=== PATIENT | male | born 1945 | race Caucasian/White ===

== ENCOUNTER 2017-06-25 08:05 | Day surgery (SDC) | payer MEDICARE, BC ==
[~2017-06-25 08:05] MED LIST: Acetaminophen 500 MG Tab PO ONE; Dextrose 5%-Lactated Ringers 1,000 ML IV SCH; Midazolam 1 MG/ML 2 ML SDV ONE; Propofol 200 MG/20 ML SDV ONE; fentaNYL 100 MCG/2 ML SDV ONE
[2017-06-25] MEDS ORDERED: ceFAZolin 2 GM in Premix Bag 1 BAG IV ONE (08:30)
[2017-06-25] MEDS ORDERED: Metoprolol Succinate 50 MG Tab.ER PO ONE (09:00)
[2017-06-25] MEDS ORDERED: Bacitracin Oint 1 GM U/D Packet ONE (09:27)
[2017-06-25] MEDS ORDERED: Lidocaine 1% with EPINEPHrine 1:100,000 50 ML MDV ONE (09:27)
[2017-06-25] MEDS ORDERED: Lidocaine 1% 50 ML MDV ONE (09:27)
[2017-06-25] MEDS ORDERED: Bupivacaine 0.5% 50 ML MDV ONE (09:27)
[2017-06-25 12:00] VITALS: BP 123/66
--- NOTE | 2017-07-02 10:24 | OR ---
DATE OF PROCEDURE: 06/25/2017 PREOPERATIVE DIAGNOSES: 1. Large epidermoid cyst, right upper neck. 2. Large skin tag, left thigh. POSTOPERATIVE DIAGNOSES: 1. Large epidermoid cyst, right upper neck. 2. Large skin tag, left thigh. OPERATIVE PROCEDURES: 1. Excision of epidermoid cyst, right upper neck, with layered closure (58751, [id number]). 2. Excision of skin tag, left thigh (13013). ANESTHESIA: Local plus IV sedation. INDICATION FOR PROCEDURE: The patient presents with an enlarging epidermoid cyst in the neck. This was located just below the angle of the jaw in an area where there might be considerable risk for nerve injury with excision. Given this, the plan is to proceed with an excision of this in the hospital with IV sedation. He also has a large skin tag starting on the left thigh, which will also be excised. Potential risks including bleeding, infection, possible recurrence of the lesions, injury to nerves in the area were reviewed, and the patient wishes to proceed. DETAILS OF PROCEDURE: The patient was taken to the operating room and placed in a supine position with the head turned somewhat toward the left. Initially, the right neck and surrounding areas were prepped and draped, and anesthetized with 1% lidocaine mixed with Marcaine. A linear incision in the skin lines was made, maintaining a level of the incision below the expected course of the marginal mandibular nerve. This was carried down through the skin and subcutaneous tissue, through an ellipse that included the overlying skin port. The cyst was then dissected free and removed in an intact manner with care taken to maintain a plane of dissection medially on the surface of the cyst. Upon removal of the cyst, it was measured at 2.5 cm. A layered closure with 4-0 Vicryl stitch deep and 5-0 Prolene skin stitch was then accomplished with that incision being 3.5 cm. Bacitracin was applied to the incision. Attention was then taken to the skin tag. This was a fairly large skin tag on the posterior aspect of the left thigh. The base was anesthetized with 1% lidocaine mixed with Marcaine. This was excised flush with the skin. No closure was felt to be necessary. Band-Aid was applied. The patient was taken to the recovery room in a satisfactory condition. Aaron Sanchez MD /[id number]
== END 2017-06-25 12:25 | disposition home or self-care (01) ==
LOC: JP.SDS 08:05
PROVIDERS: ATTEND Surgery
DX: L72.0 Epidermal cyst (principal); L91.8 Other hypertrophic disorders of the skin; G47.33 Obstructive sleep apnea (adult) (pediatric); E11.9 Type 2 diabetes mellitus without complications; E66.9 Obesity, unspecified; Z99.89 Dependence on other enabling machines and devices; Z88.8 Allergy status to other drugs, medicaments and biological substances
CPT/HCPCS: 11200; 11423; 12042; 88304; A9270; J0690; J2250; J2704; J3010; J7042

== ENCOUNTER 2017-06-28 07:08 | Day surgery (SDC) | payer MEDICARE, BC ==
[2017-06-28] MEDS ORDERED: Sodium Chloride 0.9% 1,000 ML IV SCH (07:30)
[2017-06-28] MEDS ORDERED: Propofol 200 MG/20 ML SDV ONE (07:33)
[2017-06-28] MEDS ORDERED: fentaNYL 100 MCG/2 ML SDV ONE (07:33)
[2017-06-28] MEDS ORDERED: Midazolam 1 MG/ML 2 ML SDV ONE (07:33)
[2017-06-28 09:29] VITALS: BP 112/69
--- NOTE | 2017-06-28 11:23 | CR ---
Single contrast barium enema History: Prior surgical anastomosis involving the sigmoid colon. Incomplete colonoscopy with strictur e at the anastomosis. Barium was administered retrograde into the colon via gravity. The rectum demonstrates normal distensibility. There is a focal area of narrowing at the surgical dhaval stomosis at the junction of the sigmoid colon and descending colon. There is persistent narrowing wit h poor distensibility. The colon proximal to the anastomosis demonstrates normal distensibility. Ther e are no additional areas of stricture. There are numerous scattered colonic diverticula. Impression: 1. Focal stricture at surgical anastomosis. 2. Diffuse colonic diverticula.
--- NOTE | 2017-06-28 15:44 | OR ---
DATE OF PROCEDURE: 06/28/2017 PROCEDURE: Colonoscopy. FINDINGS: 1. Stricturing of previous sigmoid colon anastomosis (unable to be traversed with the scope due to perforation risk). 2. Diverticulosis, mild. 3. Biopsy of colonic anastomotic site. COMPLICATIONS: None. FURNACE ATTENDANT: None. ANESTHESIA: MAC. RISKS: Risks, benefits, alternatives, and limitations including, but not limited to infection, bleeding, and perforation were explained to the patient, they wished to proceed. PROCEDURE IN DETAIL: The patient was placed in left lateral decubitus position. Digital rectal exam was performed without abnormality. The scope was introduced and advanced. At the sigmoid colon anastomosis, the anastomosis itself was narrower than the scope. No blind or advanced pressure were advanced, however, attempts were made to traverse this, and this was unable to be achieved. Therefore, biopsies using cold biopsy forceps were performed of the anastomotic site and no other abnormalities were noted. On retroflex, there were no abnormalities. The patient tolerated the procedure well. The patient will be sent for barium enema. Ozzie Paulson MD /[id number]
== END 2017-06-28 11:30 | disposition home or self-care (01) ==
LOC: JP.SDS 07:08
PROVIDERS: ATTEND Surgery
DX: Z12.11 Encounter for screening for malignant neoplasm of colon (principal); K57.30 Diverticulosis of large intestine without perforation or abscess without bleeding; K91.89 Other postprocedural complications and disorders of digestive system; G47.33 Obstructive sleep apnea (adult) (pediatric); Z88.8 Allergy status to other drugs, medicaments and biological substances
CPT/HCPCS: 45380; 74270; J2250; J2704; J3010; J7040; 88305

== ENCOUNTER 2018-10-10 08:36 | Day surgery (SDC) | payer MEDICARE, BC ==
[~2018-10-10 08:36] MED LIST changes: -Acetaminophen 500 MG Tab PO ONE; +Bacitracin Oint 1 GM U/D Packet ONE; -Dextrose 5%-Lactated Ringers 1,000 ML IV SCH; +Lidocaine 1% with EPINEPHrine 1:100,000 50 ML MDV ONE; -Midazolam 1 MG/ML 2 ML SDV ONE; -Propofol 200 MG/20 ML SDV ONE; -fentaNYL 100 MCG/2 ML SDV ONE
[2018-10-10] MEDS ORDERED: Dextrose 5%-Lactated Ringers 1,000 ML IV SCH (09:00)
[2018-10-10] MEDS ORDERED: ceFAZolin 2 GM in Premix Bag 1 BAG IV ONE (09:30)
[2018-10-10] MEDS ORDERED: Midazolam 1 MG/ML 2 ML SDV ONE (09:34)
[2018-10-10] MEDS ORDERED: fentaNYL 100 MCG/2 ML SDV ONE (09:34)
[2018-10-10] MEDS ORDERED: Propofol 200 MG/20 ML SDV ONE (09:34)
[2018-10-10 13:59] VITALS: BP 157/76
--- NOTE | 2018-10-13 14:13 | OR ---
DATE OF PROCEDURE: 10/10/2018 PREOPERATIVE DIAGNOSIS: Rule out temporal arteritis. POSTOPERATIVE DIAGNOSIS: Rule out temporal arteritis. OPERATIVE PROCEDURE: Bilateral temporal artery biopsies (49859 x2). ANESTHESIA: Local plus IV sedation. INDICATIONS FOR PROCEDURE: The patient is a 73-year-old, presenting here with symptoms suggestive of possible temporal arteritis. Given this, he is going to undergo bilateral temporal artery biopsy. Potential risks of the procedure including bleeding and infection were reviewed, and the patient wishes to proceed. DETAILS OF PROCEDURE: The patient was taken to the operating room, placed in a supine position. After IV sedation was administered, the temporal arteries were mapped out on each side with Dopplers and the line of temporal artery marked out. Both areas were then prepped and draped, anesthetized with 1% lidocaine mixed with Marcaine. Attention was taken to the left side initially. A linear incision was made over the temporal artery and continued down through the skin and subcutaneous tissue. The artery was then identified and roughly 3 cm to 3.5 cm of the artery was dissected free. Proximally and distally, the artery was then clamped and divided, and the arterial tissue between the 2 clamp points was then excised and sent for histologic evaluation. The 2 ends were then suture ligated with 4-0 Vicryl stitch, which was also used to close the deeper soft tissues in 2 layers and the skin then closed with 5-0 Vicryl subcuticular stitch. Attention was then taken to the right side. In an identical incision and dissection, excision was accomplished. The artery on this side was a little bit thicker, but neither side was particularly suggestive of a temporal arteritis grossly. Upon completion of the procedure, both incisions were coated with some surgical glue. The patient was taken to the recovery room in satisfactory condition. There were no evident complications. Aaron Sanchez MD /[id number]
== END 2018-10-10 13:50 | disposition home or self-care (01) ==
LOC: JP.SDS 08:36
PROVIDERS: ATTEND Surgery
DX: M31.6 Other giant cell arteritis (principal); E78.5 Hyperlipidemia, unspecified; E11.9 Type 2 diabetes mellitus without complications; G47.33 Obstructive sleep apnea (adult) (pediatric); E66.01 Morbid (severe) obesity due to excess calories; Z68.42 Body mass index [BMI] 45.0-49.9, adult; Z88.8 Allergy status to other drugs, medicaments and biological substances; Z79.84 Long term (current) use of oral hypoglycemic drugs; Z79.82 Long term (current) use of aspirin; Z79.899 Other long term (current) drug therapy; Z99.89 Dependence on other enabling machines and devices
CPT/HCPCS: 37609; J0690; J2250; J2704; J3010; J7042

== ENCOUNTER → 2018-10-23 | Outpatient (CLI) | payer MEDICARE, BC ==
[2018-10-23 08:48] VITALS: BP 178/109; PULSE 60
--- NOTE | 2018-10-25 14:46 | CRLNM ---
MYOCARDIAL PERFUSION SCAN CLINICAL HISTORY: 73-year-old male. Dyspnea. Chest tightness with exertion. Coronary artery disease. Hyperlipidemia. Hypertension. AV block. Pacemaker. Height 5 feet 8 inches, weight 315 pounds. TECHNIQUE: (Resting SPECT and Stress Gated SPECT with wall motion and ejection fraction) Stress: Pharmacologic Lexiscan (0.4 mg) (IV) Dose (Stress/Rest): 33.0 mCi/32 mCi Tc-99m Myoview (IV) Comparison: None FINDINGS: There is good uptake of activity by the left ventricle. There is mild left ventricular enlargement. The end-diastolic volume is 181 mL. There is significant motion artifact on stress and rest images. There is soft tissue attenuation artifact compatible with diaphragmatic attenuation. No other significant fixed or reversible defects are identified. Gated images demonstrate a normal left ventricular ejection fraction of 65percent. No regional wall motion abnormalities are identified. IMPRESSION: 1. Fixed defect in the inferior wall likely related to diaphragmatic attenuation artifact. 2. No evidence for ischemia. 3. Normal left ventricular ejection fraction of 65 percent. EDITH DODD M.D. Diagnostic/Nuclear Medicine Radiologist [email or web address] Transcribed: 11:53 am DW/Dictated by: Edith Dodd MD @ 10/25/2018 10:46:00 AM (Electronically Signed)
--- NOTE | 2018-11-04 09:35 | STRESS ---
DATE OF SERVICE: 10/23/2018 PROPOSED PROCEDURE: Lexiscan stress test. INDICATION FOR STRESS TEST: Dyspnea and chest pressure. DESCRIPTION OF PROCEDURE: Shantanu is a 73-year-old male here for an outpatient stress test. Baseline EKG shows a sinus rhythm with a wide QRS complex that is consistent with a ventricular-paced rhythm, probably indicating an atrial sensed and ventricular-paced rhythm. His baseline blood pressure is 170/99 with a pulse of 66. The stress test was administered per the protocol with injection of the Lexiscan followed by the Myoview. Review of the continuous EKG monitoring showed no changes in the ST segments or T-waves during the stress or recovery portion of the test. His blood pressure did initially rise before dropping with a peak blood pressure of 185/77 at the 1-minute layne of recovery and a blood pressure of 141/75 at the completion of the test. His heart rate remained essentially stable throughout the stress test and was 63 at the completion of the test. Review of the process technician's notes suggest the patient tolerated the test very well with only very slight flushing. No chest pain or dyspnea was reported. IMPRESSION: Negative EKG portion of the stress test. No chest pain or dyspnea were reported. The nuclear medicine portion will be interpreted separately. Daniel Reyes MD /[id number]
== END ==
LOC: JP.ACU 08:30
PROVIDERS: ATTEND Internal Medicine
DX: R06.09 Other forms of dyspnea (principal)
CPT/HCPCS: 78452; 93017; A9500; J2785; 93018

== ENCOUNTER 2018-12-04 23:57 | Emergency (ER) | payer MEDICARE, BC ==
[2018-12-05 01:00] VITALS: BP 171/73; PULSE 64
--- NOTE | 2018-12-05 02:16 | EDM.PDOC ---
ED HPI GENERAL MEDICAL PROBLEM - General Chief Complaint: Lower Extremity Injury/Pain Stated Complaint: SWOLLEN RIGHT LEG Time Seen by Provider: 12/05/18 02:14 Source of Information: Reports: Patient, Family, Old Records, RN Notes Reviewed History Limitations: Reports: No Limitations - History of Present Illness INITIAL COMMENTS - FREE TEXT/NARRATIVE: 73-year-old gentleman presents to the emergency department today complaint of right swollen lower extremity for 3 days. Was evaluated by his primary care yesterday underwent ultrasound at that time which was negative for DVT, he states the swelling persists developed some redness and warmth of that leg as well. He recently completed a long road trip and he also has not taken his Lasix for a period time he is now on his regular regimen Treatments FURNACE PROCESS PLANT OPERATOR: Reports: Other (see below) Other Treatments FURNACE PROCESS PLANT OPERATOR: pam wrap - Related Data Allergies Allergy/AdvReac Type Severity Reaction Status Date / Time Corticosteroids AdvReac Cannot Verified 12/05/18 02:01 (Glucocorticoids) Remember Fzjzkof-Glf-Adv Reductase AdvReac Muscle Verified 12/05/18 02:01 Inhibitor Aches Home Meds: Home Meds Allopurinol [Zyloprim] 300 mg PO DAILY 10/23/14 [History] Metoprolol Succinate 200 mg PO DAILY 10/23/14 [History] Naproxen Sodium [Aleve] 440 mg PO DAILY PRN 10/23/14 [History] metFORMIN [Glucophage XR] 500 mg PO DAILY 10/23/14 [History] Lisinopril 5 mg PO DAILY 06/22/17 [History] Lutein/Minerals/Vit A,C & E [Ocuvite] 1 tab PO DAILY 10/09/17 [History] Furosemide [Lasix] 40 mg PO DAILY 10/09/18 [History] Aspirin [Aspirin EC] 325 mg PO DAILY 10/18/18 [History] predniSONE [Prednisone] 30 mg PO DAILY 10/18/18 [History] Past Medical History HEENT History: Reports: Impaired Vision Cardiovascular History: Reports: Arrhythmia, Heart Failure, High Cholesterol, Hypertension, Pacemaker, SOB on Exertion, Other (See Below) Other Cardiovascular History: edema, complete AV block Respiratory History: Reports: Sleep Apnea Other Respiratory History: cpap Gastrointestinal History: Reports: Diverticulosis Genitourinary History: Reports: Other (See Below) Other Genitourinary History: erectile dysfunction, peyronie's disease; uric acid stone Musculoskeletal History: Reports: Arthritis, Back Pain, Chronic, Other (See Below) Other Musculoskeletal History: PMR, left sciatica- had back surgery Endocrine/Metabolic History: Reports: Diabetes, Type II, Obesity/BMI 30+ Oncologic (Cancer) History: Reports: Basal Cell Carcinoma Other Oncologic History: MELANOMA Dermatologic History: Reports: None, Other (See Below) Other Dermatologic History: BELOW LEFT EYE-had excision and biopsy - Infectious Disease History Infectious Disease History: Reports: Chicken Pox, Measles, Mumps, Rubella - Past Surgical History Head Surgeries/Procedures: Reports: None HEENT Surgical History: Reports: Cataract Surgery, Other (See Below) Other HEENT Surgeries/Procedures: Cyst removed right neck Cardiovascular Surgical History: Reports: Other (See Below) Other Cardiovascular Surgeries/Procedures: PACEMAKER IN LEFT CHEST Respiratory Surgical History: Reports: None GI Surgical History: Reports: Colonoscopy, Hernia, Abdominal, Small Bowel, Other (See Below) Other GI Surgeries/Procedures: hemorrhoidectomy Male Surgical History: Reports: None, Vasectomy Endocrine Surgical History: Reports: None Musculoskeletal Surgical History: Reports: Knee Replacement Other Musculoskeletal Surgeries/Procedures:: right knee Oncologic Surgical History: Reports: None Dermatological Surgical History: Reports: Skin Biopsy Social & Family History - Family History Family Medical History: Noncontributory Musculoskeletal: Reports: Arthritis Oncologic: Reports: Brain, Ovarian - Caffeine Use Caffeine Use: Reports: Coffee Other Caffeine Use: rare coffee use Review of Systems - Review of Systems Review Of Systems: See Below Respiratory: Reports: No Symptoms Cardiovascular: Reports: No Symptoms Musculoskeletal: Reports: Leg Pain Skin: Reports: Pallor, Change in Color ED EXAM, GENERAL - Physical Exam Exam: See Below Free Text/Narrative:: Examination of the right lower extremity I do appreciate some erythema slight pallor is noted there are no breaks in the skin +1-2 pitting edema is noted in the lower extremity trace edema is appreciated in the left side pedal pulses +2 , skin is tender to light touch Exam Limited By: No Limitations General Appearance: Alert, WD/WN, No Apparent Distress Respiratory/Chest: No Respiratory Distress, Lungs Clear, Normal Breath Sounds, No Accessory Muscle Use, Chest Non-Tender Cardiovascular: Regular Rate, Rhythm, No Murmur Course - Vital Signs Last Recorded V/S: Last Vital Signs Temp 97.1 F 12/05/18 00:58 Pulse 64 12/05/18 00:58 Resp 18 12/05/18 00:58 BP 171/73 H 12/05/18 00:58 Pulse Ox 95 12/05/18 00:58 - Orders/Labs/Meds Labs: Laboratory Tests 12/05/18 12/05/18 12/05/18 Range/Units 02:20 02:20 02:20 WBC 15.5 H (4.5-11.0) K/uL RBC 5.05 (4.30-5.90) M/uL Hgb 14.6 (12.0-15.0) g/dL Hct 45.6 (40.0-54.0) % MCV 90 (80-98) fL MCH 29 (27-31) pg MCHC 32 (32-36) % Plt Count 197 (150-400) K/uL Neut % (Auto) 80 H (36-66) % Lymph % (Auto) 8 L (24-44) % [place] % (Auto) 11 H (2-6) % Eos % (Auto) 1 L (2-4) % Baso % (Auto) 0 (0-1) % Sodium (140-148) mmol/L Potassium (3.6-5.2) mmol/L Chloride (100-108) mmol/L Carbon Dioxide (21-32) mmol/L Anion Gap (5.0-14.0) mmol/L BUN (7-18) mg/dL Creatinine (0.8-1.3) mg/dL Est Cr Clr Drug Dosing mL/min Estimated GFR (MDRD) (>60) Glucose (74-106) mg/dL Lactic Acid 2.3 H (0.4-2.0) mmol/L Calcium (8.5-10.1) mg/dL C-Reactive Protein 13.39 H (0.0-0.3) mg/dL 12/05/18 Range/Units 02:20 WBC (4.5-11.0) K/uL RBC (4.30-5.90) M/uL Hgb (12.0-15.0) g/dL Hct (40.0-54.0) % MCV (80-98) fL MCH (27-31) pg MCHC (32-36) % Plt Count (150-400) K/uL Neut % (Auto) (36-66) % Lymph % (Auto) (24-44) % [place] % (Auto) (2-6) % Eos % (Auto) (2-4) % Baso % (Auto) (0-1) % Sodium 142 (140-148) mmol/L Potassium 3.8 (3.6-5.2) mmol/L Chloride 102 (100-108) mmol/L Carbon Dioxide 32 (21-32) mmol/L Anion Gap 7.8 (5.0-14.0) mmol/L BUN 24 H (7-18) mg/dL Creatinine 1.2 (0.8-1.3) mg/dL Est Cr Clr Drug Dosing 57.45 mL/min Estimated GFR (MDRD) 60 (>60) Glucose 159 H (74-106) mg/dL Lactic Acid (0.4-2.0) mmol/L Calcium 9.1 (8.5-10.1) mg/dL C-Reactive Protein (0.0-0.3) mg/dL Departure - Departure Time of Disposition: 03:15 Disposition: Home, Self-Care 01 Condition: Fair Clinical Impression: Cellulitis Qualifiers: Site of cellulitis: extremity Site of cellulitis of extremity: lower extremity Laterality: right Qualified Code(s): L03.115 - Cellulitis of right lower limb - Discharge Information Instructions: Cellulitis, Adult Referrals: Moody Kolb MD [Primary Care Provider] - Forms: ED Department Discharge Additional Instructions: Take full course of antibiotics, Please followup with your primary care provider in 3-5 days if not better, please call return to the emergency department with worsening of symptoms. - Assessment/Plan Plan: Assessment Acuity = acute Site and laterality = cellulitis right lower extremity Etiology = suspicious for bacterial cause Manifestations = none Location of injury = Home Lab values = WBC elevated 15.5 consistent leukocytosis, CRP elevated 13.3 lactic acid slightly elevated 2.3 consistent lactic acidosis Plan Did review his ultrasound results with him from yesterday which were negative for any DVT elected to treat empirically Keflex 500 mg by mouth 4 times a day 10 days follow-up primary care in 3-5 days if no improvement This note was dictated using DocuSign voice recognition software please call with any questions on syntax or grammar.
== END 2018-12-05 03:31 | disposition home or self-care (01) ==
LOC: JP.ED 23:57
DX: L03.115 Cellulitis of right lower limb (principal); I11.0 Hypertensive heart disease with heart failure; I50.9 Heart failure, unspecified; E78.00 Pure hypercholesterolemia, unspecified; E11.9 Type 2 diabetes mellitus without complications; Z88.8 Allergy status to other drugs, medicaments and biological substances; Z79.899 Other long term (current) drug therapy; Z79.84 Long term (current) use of oral hypoglycemic drugs; Z79.82 Long term (current) use of aspirin; Z95.0 Presence of cardiac pacemaker; Z85.828 Personal history of other malignant neoplasm of skin
CPT/HCPCS: 36415; 80048; 83605; 85025; 86140; 99283

== ENCOUNTER 2020-02-24 14:14 | Emergency (ER) | payer MEDICARE, BC ==
[2020-02-24 14:54] VITALS: BP 139/102; PULSE 91
[2020-02-24] MEDS ORDERED: Sodium Chloride 0.9% 1,000 ML IV SCH (15:45)
--- NOTE | 2020-02-24 16:48 | EDM.PDOC ---
ED HPI GENERAL MEDICAL PROBLEM - General Chief Complaint: Abdominal Pain Stated Complaint: ABDOMINAL PAIN, COVID POSITIVE Time Seen by Provider: 02/24/20 15:00 Source of Information: Reports: Patient, Family History Limitations: Reports: No Limitations - History of Present Illness INITIAL COMMENTS - FREE TEXT/NARRATIVE: 74-year-old male with positive Covid test last week, he had no respiratory symptoms but has had diarrhea for the last week and a half. No significant fevers or chills. He is in today because the diarrhea has persisted although it is slowing down, but he is developed some abdominal discomfort sensation of distention in the abdomen. He also does not feel like he is passing urine as much as he should be. No dysuria. Appetite is reasonable. No nausea or vomiting, no shortness of breath, no cough. Also concerned about 10 to 15 pound weight loss, concerned about hydration status. Onset: Gradual Duration: Day(s): (Symptoms for the last 7 to 10 days) Location: Reports: Abdomen Associated Symptoms: Reports: Malaise. Denies: Confusion, Chest Pain, Cough, Diaphoresis, Fever/Chills, Nausea/Vomiting, Shortness of Breath - Related Data Allergies Allergy/AdvReac Type Severity Reaction Status Date / Time Corticosteroids AdvReac Cannot Verified 02/24/20 14:45 (Glucocorticoids) Remember [id number] Reductase AdvReac Muscle Verified 02/24/20 14:45 Inhibitor Aches Home Meds: Home Meds Metoprolol Succinate 200 mg PO DAILY 10/23/14 [History] Naproxen Sodium [Aleve] 440 mg PO DAILY PRN 10/23/14 [History] allopurinoL [Zyloprim] 300 mg PO DAILY 10/23/14 [History] metFORMIN [Glucophage XR] 1,000 mg PO DAILY 10/23/14 [History] Lisinopril 10 mg PO DAILY 06/22/17 [History] Lutein/Minerals/Vit A,C & E [Ocuvite] 1 tab PO DAILY 10/09/17 [History] Furosemide [Lasix] 40 mg PO DAILY 10/09/18 [History] Aspirin [Aspirin EC] 325 mg PO DAILY 10/18/18 [History] Rosuvastatin [Crestor] 2.5 mg PO ASDIRECTED 02/24/20 [History] Past Medical History HEENT History: Reports: Impaired Vision Cardiovascular History: Reports: Arrhythmia, Heart Failure, High Cholesterol, Hypertension, Pacemaker, SOB on Exertion, Other (See Below) Other Cardiovascular History: edema, complete AV block Respiratory History: Reports: Sleep Apnea Other Respiratory History: cpap Gastrointestinal History: Reports: Diverticulosis Genitourinary History: Reports: Other (See Below) Other Genitourinary History: erectile dysfunction, peyronie's disease; uric acid stone Musculoskeletal History: Reports: Arthritis, Back Pain, Chronic, Other (See Below) Other Musculoskeletal History: PMR, left sciatica- had back surgery Endocrine/Metabolic History: Reports: Diabetes, Type II, Obesity/BMI 30+ Oncologic (Cancer) History: Reports: Basal Cell Carcinoma Other Oncologic History: MELANOMA Dermatologic History: Reports: None, Other (See Below) Other Dermatologic History: BELOW LEFT EYE-had excision and biopsy - Infectious Disease History Infectious Disease History: Reports: Chicken Pox, Measles, Mumps - Past Surgical History Head Surgeries/Procedures: Reports: None HEENT Surgical History: Reports: Cataract Surgery, Other (See Below) Other HEENT Surgeries/Procedures: Cyst removed right neck Cardiovascular Surgical History: Reports: Other (See Below) Other Cardiovascular Surgeries/Procedures: PACEMAKER IN LEFT CHEST Respiratory Surgical History: Reports: None GI Surgical History: Reports: Colonoscopy, Hernia, Abdominal, Small Bowel, Other (See Below) Other GI Surgeries/Procedures: hemorrhoidectomy Male Surgical History: Reports: None, Vasectomy Endocrine Surgical History: Reports: None Musculoskeletal Surgical History: Reports: Knee Replacement Other Musculoskeletal Surgeries/Procedures:: right knee Oncologic Surgical History: Reports: None Dermatological Surgical History: Reports: Skin Biopsy Social & Family History - Family History Family Medical History: Noncontributory Musculoskeletal: Reports: Arthritis Oncologic: Reports: Brain, Ovarian - Tobacco Use Tobacco Use Status *Q: Never Tobacco User Second Hand Smoke Exposure: No - Caffeine Use Caffeine Use: Reports: Coffee Other Caffeine Use: rare coffee use - Recreational Drug Use Recreational Drug Use: No ED ROS GENERAL - Review of Systems Review Of Systems: See Below Constitutional: Reports: Malaise, Weakness. Denies: Fever, Chills HEENT: Reports: No Symptoms Respiratory: Denies: Shortness of Breath Cardiovascular: Denies: Chest Pain GI/Abdominal: Reports: Abdominal Pain, Diarrhea. Denies: Nausea, Vomiting : Reports: Frequency (Decreased urinary frequency). Denies: Hematuria, Incontinence Skin: Reports: No Symptoms Neurological: Reports: Weakness. Denies: Dizziness, Headache Psychiatric: Reports: No Symptoms ED EXAM, GI/ABD - Physical Exam Exam: See Below Exam Limited By: No Limitations General Appearance: Alert, No Apparent Distress Eyes: Bilateral: Normal Appearance (Normal hydration, no jaundice) Head: Atraumatic Neck: Supple, Non-Tender Respiratory/Chest: Lungs Clear Cardiovascular: Regular Rate, Rhythm. No: Tachycardia GI/Abdominal Exam: Other (Patient is fairly obese, bowel sounds are very active but he has no specific tenderness to palpation) Extremities: No Pedal Edema. No: Pedal Edema Neurological: Alert, Oriented, No Motor/Sensory Deficits Psychiatric: Normal Affect, Normal Mood Skin Exam: Warm, Dry Course - Vital Signs Last Recorded V/S: Last Vital Signs Temp 97.8 F 02/24/20 14:54 Pulse 91 02/24/20 14:54 Resp 16 02/24/20 14:54 BP 139/102 H 02/24/20 14:54 Pulse Ox 96 02/24/20 14:54 - Orders/Labs/Meds Orders: Active Orders 24 hr Category Date Time Status CULTURE URINE [RM] Stat Lab 02/24/20 16:29 Received Labs: Laboratory Tests 02/24/20 02/24/20 02/24/20 Range/Units 15:19 15:19 15:19 WBC 5.1 (4.5-11.0) K/uL RBC 5.38 (4.30-5.90) M/uL Hgb 15.0 (12.0-15.0) g/dL Hct 46.0 (40.0-54.0) % MCV 86 (80-98) fL MCH 28 (27-31) pg MCHC 33 (32-36) % Plt Count 216 (150-400) K/uL Neut % (Auto) 50 (36-66) % Lymph % (Auto) 33 (24-44) % [place] % (Auto) 16 H (2-6) % Eos % (Auto) 0 L (2-4) % Baso % (Auto) 0 (0-1) % Sodium 140 (140-148) mmol/L Potassium 4.0 (3.6-5.2) mmol/L Chloride 104 (100-108) mmol/L Carbon Dioxide 25 (21-32) mmol/L Anion Gap 11.5 (5.0-14.0) mmol/L BUN 19 H (7-18) mg/dL Creatinine 1.1 (0.8-1.3) mg/dL Est Cr Clr Drug Dosing TNP Estimated GFR (MDRD) > 60 (>60) Glucose 121 H (74-106) mg/dL Lactic Acid 1.1 (0.4-2.0) mmol/L Calcium 9.4 (8.5-10.1) mg/dL Total Bilirubin 0.3 (0.2-1.0) mg/dL AST 28 D (15-37) U/L ALT 28 (12-78) U/L Alkaline Phosphatase 103 (46-116) U/L Total Protein 7.9 (6.4-8.2) g/dL Albumin 3.5 (3.4-5.0) g/dL Globulin 4.4 H (2.3-3.5) g/dL Albumin/Globulin Ratio 0.8 L (1.2-2.2) Lipase 138 (73-393) U/L Urine Color (YELLOW) Urine Appearance (CLEAR) Urine pH (5.0-8.0) Ur Specific [place] (1.008-1.030) Urine Protein (NEGATIVE) mg/dL Urine Glucose (UA) (NEGATIVE) mg/dL Urine Ketones (NEGATIVE) mg/dL Urine Occult Blood (NEGATIVE) Urine Nitrite (NEGATIVE) Urine Bilirubin (NEGATIVE) Urine Urobilinogen (0.2-1.0) EU/dL Ur Leukocyte Esterase (NEGATIVE) Urine RBC (0-5) Urine WBC (0-5) Ur Epithelial Cells Amorphous Sediment Urine Bacteria Urine Mucus 20/20 Range/Units 15:35 WBC (4.5-11.0) K/uL RBC (4.30-5.90) M/uL Hgb (12.0-15.0) g/dL Hct (40.0-54.0) % MCV (80-98) fL MCH (27-31) pg MCHC (32-36) % Plt Count (150-400) K/uL Neut % (Auto) (36-66) % Lymph % (Auto) (24-44) % [place] % (Auto) (2-6) % Eos % (Auto) (2-4) % Baso % (Auto) (0-1) % Sodium (140-148) mmol/L Potassium (3.6-5.2) mmol/L Chloride (100-108) mmol/L Carbon Dioxide (21-32) mmol/L Anion Gap (5.0-14.0) mmol/L BUN (7-18) mg/dL Creatinine (0.8-1.3) mg/dL Est Cr Clr Drug Dosing Estimated GFR (MDRD) (>60) Glucose (74-106) mg/dL Lactic Acid (0.4-2.0) mmol/L Calcium (8.5-10.1) mg/dL Total Bilirubin (0.2-1.0) mg/dL AST (15-37) U/L ALT (12-78) U/L Alkaline Phosphatase (46-116) U/L Total Protein (6.4-8.2) g/dL Albumin (3.4-5.0) g/dL Globulin (2.3-3.5) g/dL Albumin/Globulin Ratio (1.2-2.2) Lipase (73-393) U/L Urine Color Yellow (YELLOW) Urine Appearance Clear (CLEAR) Urine pH 5.5 (5.0-8.0) Ur Specific [place] 1.025 (1.008-1.030) Urine Protein 100 H (NEGATIVE) mg/dL Urine Glucose (UA) Negative (NEGATIVE) mg/dL Urine Ketones Negative (NEGATIVE) mg/dL Urine Occult Blood Moderate H (NEGATIVE) Urine Nitrite Positive H (NEGATIVE) Urine Bilirubin Negative (NEGATIVE) Urine Urobilinogen 0.2 (0.2-1.0) EU/dL Ur Leukocyte Esterase Trace H (NEGATIVE) Urine RBC Not seen (0-5) Urine WBC 0-5 (0-5) Ur Epithelial Cells Few Amorphous Sediment Rare Urine Bacteria Many Urine Mucus Not seen Meds: Medications Discontinued Medications Generic Name Dose Route Start Last Admin Trade Name Freq PRN Reason Stop Dose Admin Sodium Chloride 1,000 mls @ 1,000 mls/hr 02/24/20 15:45 02/24/20 16:00 Normal Saline IV 1,000 mls/hr ASDIRECTED [facility] Administration - Re-Assessments/Exams Free Text/Narrative Re-Assessment/Exam: 02/24/20 17:35 CBC, CMP, UA were obtained. Also lactic acid. Labs were remarkably normal, white count, hemoglobin, lactic acid all within normal limits. All of his electrolytes were normal except glucose was 121. UA did show bacteria and nitrite positive urine, this was cultured. Explained to the patient that a abdominal CT I do not think is necessary at this time, he is likely having some discomfort from his gastroenteritis symptoms. Patient was placed on Cipro 500 mg twice daily for 5 days, and has a recheck with Dr. Kolb on Sunday. Concentrate on staying hydrated. Departure - Departure Time of Disposition: 17:06 Disposition: Home, Self-Care 01 Clinical Impression: Gastroenteritis UTI (urinary tract infection) Qualifiers: Urinary tract infection type: acute cystitis Hematuria presence: without hematuria Qualified Code(s): N30.00 - Acute cystitis without hematuria - Discharge Information Instructions: Urinary Tract Infection, Adult Referrals: PCP,None [Primary Care Provider] - Forms: ED Department Discharge Care Plan Goals: Take antibiotic twice daily for 5 days. Fluids are important, increase activity as tolerated and recheck on Sunday as scheduled. Your urine culture should be available by Sunday. Return anytime sooner if worsening or concerns. Sepsis Event Note (ED) - Evaluation Sepsis Screening Result: No Definite Risk - Focused Exam Vital Signs: Vital Signs Temp Pulse Resp BP Pulse Ox 02/24/20 14:54 97.8 F 91 16 139/102 H 96 02/24/20 14:52 97.8 F 91 16 139/102 H 96 - My Orders Last 24 Hours: My Active Orders 02/24/20 16:29 CULTURE URINE [RM] Stat - Assessment/Plan Last 24 Hours: My Active Orders 02/24/20 16:29 CULTURE URINE [RM] Stat
== END 2020-02-24 17:06 | disposition home or self-care (01) ==
LOC: JP.ED 14:14
DX: N30.00 Acute cystitis without hematuria (principal); K52.9 Noninfective gastroenteritis and colitis, unspecified; I11.0 Hypertensive heart disease with heart failure; I50.9 Heart failure, unspecified; E78.00 Pure hypercholesterolemia, unspecified; E11.9 Type 2 diabetes mellitus without complications; E66.9 Obesity, unspecified; Z68.42 Body mass index [BMI] 45.0-49.9, adult; M19.90 Unspecified osteoarthritis, unspecified site; Z79.82 Long term (current) use of aspirin; Z88.8 Allergy status to other drugs, medicaments and biological substances
CPT/HCPCS: 36415; 80053; 81001; 83605; 83690; 85025; 87086; 87088; 87186; 99284; J7030

== ENCOUNTER 2020-05-20 06:44 | Day surgery (SDC) | payer MEDICARE, BC ==
[2020-05-20] MEDS ORDERED: Sodium Chloride 0.9% 1,000 ML IV SCH (07:30)
[2020-05-20] MEDS ORDERED: fentaNYL 100 MCG/2 ML SDV ONE (07:37)
[2020-05-20] MEDS ORDERED: Propofol 200 MG/20 ML SDV ONE (07:37)
[2020-05-20] MEDS ORDERED: Midazolam 1 MG/ML 2 ML SDV ONE (07:37)
[2020-05-20 09:23] VITALS: BP 140/80; PULSE 61
--- NOTE | 2020-05-20 09:39 | OR ---
DATE OF PROCEDURE: 05/20/2020 SURGEON: Ozzie Paulson MD PROCEDURE: Esophagogastroduodenoscopy. FINDINGS: Very mild gastritis. COMPLICATIONS: None. SECURITY THREAT ANALYST: None. ANESTHESIA: MAC. PREOPERATIVE DIAGNOSIS: Lymphadenopathy. POSTOPERATIVE DIAGNOSIS: Lymphadenopathy. DESCRIPTION OF PROCEDURE: The patient was placed in left lateral decubitus position. The EGD scope was introduced and advanced atraumatically to the second part of the duodenum. No evidence of duodenitis or ulceration was noted. No abnormalities within the stomach. There was one small area of gastritis. This was not actively bleeding. This was rather benign- appearing in nature. Scope was retroflexed. No hiatal hernia. No masses. No other abnormalities within the esophagus itself. The GE junction was normal. No evidence of mass or abnormalities. The remainder of the esophagus was inspected without abnormality. The patient tolerated the procedure well. Ozzie Paulson MD /[id number]
== END 2020-05-20 09:40 | disposition home or self-care (01) ==
LOC: JP.SDS 06:44
PROVIDERS: ATTEND Surgery
DX: K29.70 Gastritis, unspecified, without bleeding (principal); G47.33 Obstructive sleep apnea (adult) (pediatric); E11.9 Type 2 diabetes mellitus without complications; E66.9 Obesity, unspecified; Z01.812 Encounter for preprocedural laboratory examination; Z20.822 Contact with and (suspected) exposure to COVID-19; Z88.8 Allergy status to other drugs, medicaments and biological substances; Z68.42 Body mass index [BMI] 45.0-49.9, adult
CPT/HCPCS: 43235; J2250; J2704; J3010; J7030; U0002

== ENCOUNTER 2021-01-14 06:36 | Day surgery (SDC) | payer MEDICARE, BC ==
[2021-01-14] MEDS ORDERED: Propofol 200 MG/20 ML SDV ONE (07:19)
[2021-01-14] MEDS ORDERED: Midazolam 1 MG/ML 2 ML SDV ONE (07:19)
[2021-01-14] MEDS ORDERED: fentaNYL 100 MCG/2 ML SDV ONE (07:19)
[2021-01-14] MEDS ORDERED: Sodium Chloride 0.9% 1,000 ML IV SCH (07:30)
[2021-01-14 09:31] VITALS: PULSE 60
[2021-01-14 10:04] VITALS: BP 113/71
--- NOTE | 2021-01-14 14:13 | OR ---
DATE OF PROCEDURE: 01/14/2021 SURGEON: Ozzie Paulson MD PROCEDURE PERFORMED: Colonoscopy. FINDINGS: 1. Colonoscopy to the level of the sigmoid colon, but terminated due to extreme tortuosity of the colon. 2. Diverticulosis, extensive and densely concentrated in the sigmoid colon. 3. Hemorrhoid banding, internal. COMPLICATIONS: None. FILLER BLENDER: None. ANESTHESIA: MAC. PREOPERATIVE DIAGNOSIS: Gastrointestinal bleeding. POSTOPERATIVE DIAGNOSIS: Gastrointestinal bleeding. RISKS: Risks, benefits, alternatives, and limitations including, but not limited to infection, bleeding, perforation, false positives, and false negatives were explained to the patient who wished to proceed. PROCEDURE IN DETAIL: The patient was placed in the left lateral decubitus position. Digital rectal exam was performed without abnormality. The scope was introduced and advanced atraumatically into the sigmoid colon. The sigmoid colon was noted to be significantly tortuous. The scope was unable to be advanced past this point. At no point was the scope blindly advanced, forced, or undue pressure placed. The procedure was simply terminated at that time, brought back, and hemorrhoid banding was commenced. The patient had one single large hemorrhoid which was banded x1. The patient tolerated the procedure well. Ozzie Paulson MD /[id number]
--- NOTE | 2021-01-17 08:49 | OR ---
DATE OF PROCEDURE: 01/14/2021 SURGEON: Ozzie Paulson MD ADDENDUM: After the procedure, when the patient was alert and oriented, we did discuss the recommendation for completion of evaluation of colon for colorectal cancer, and we discussed Cologuard, barium enema, and other options. The patient politely declined. He understands the risks, benefits, alternatives, and limitations including the fact that we might be missing colon cancer. He understands these risks and does not wish to proceed. Ozzie Paulson MD /[id number]
== END 2021-01-14 10:10 | disposition home or self-care (01) ==
LOC: JP.SDS 06:36
PROVIDERS: ATTEND Surgery
DX: K57.31 Diverticulosis of large intestine without perforation or abscess with bleeding (principal); K64.8 Other hemorrhoids; K63.89 Other specified diseases of intestine; G47.33 Obstructive sleep apnea (adult) (pediatric); I10 Essential (primary) hypertension; E11.9 Type 2 diabetes mellitus without complications; E66.9 Obesity, unspecified; Z95.0 Presence of cardiac pacemaker
CPT/HCPCS: 45330; 46221; J2250; J2704; J3010; J7030

== ENCOUNTER 2022-04-02 07:43 | Emergency (ER) | payer MEDICARE, BC ==
[2022-04-02 07:58] VITALS: PULSE 60
[2022-04-02] MEDS ORDERED: Aspirin 81 MG Tab.Chew PO ONE (08:48)
[2022-04-02] MEDS ORDERED: Ondansetron 4 MG Tab.DIS PO PRN (08:48)
[2022-04-02 10:04] LABS: ESTIMATED GFR 63 mL/min (>60); TROPONIN I HIGH SENSITIVITY 14.1 pg/mL (<=60.3)
[2022-04-02] MEDS ORDERED: Sodium Chloride 0.9% 10 ML Syringe FLUSH PRN (10:24)
[2022-04-02] MEDS ORDERED: Sodium Chloride 0.9% 1,000 ML IV SCH (10:30)
[2022-04-02] MEDS ORDERED: Iopamidol 612 MG/ML 100 ML Bottle IV PRN (10:33)
[2022-04-02] MEDS ORDERED: Sodium Chloride 0.9% 100 ML IV SCH (10:45)
[2022-04-02 12:19] VITALS: BP 150/77
== END 2022-04-02 13:31 | disposition home or self-care (01) ==
LOC: JP.ED 07:43
DX: K59.04 Chronic idiopathic constipation (principal); I11.0 Hypertensive heart disease with heart failure; I50.9 Heart failure, unspecified; E78.00 Pure hypercholesterolemia, unspecified; E11.9 Type 2 diabetes mellitus without complications; M19.90 Unspecified osteoarthritis, unspecified site; E66.9 Obesity, unspecified; Z68.42 Body mass index [BMI] 45.0-49.9, adult; Z88.8 Allergy status to other drugs, medicaments and biological substances; Z79.899 Other long term (current) drug therapy; Z79.82 Long term (current) use of aspirin
CPT/HCPCS: 36415; 71046; 74018; 74177; 80048; 84484; 85025; 93005; 96360; 96361; 99284; J3490; J7030; Q0162; Q9967